=== PATIENT | female | born 1950 | race Two or more races ===

== ENCOUNTER 2024-08-07 08:03 | Outpatient (CLI) | payer OTHER | END 2024-08-07 08:12 | disposition home or self-care (01) | LOC: NUCLEAR 08:03 | PROVIDERS: ATTEND Family Medicine | DX: E21.3 Hyperparathyroidism, unspecified (principal) | CPT/HCPCS: 78070; A9500 ==

== ENCOUNTER 2025-07-22 07:25 | Outpatient (CLI) | payer OTHER | END 2025-07-22 07:26 | disposition home or self-care (01) | LOC: NUCLEAR 07:25 | PROVIDERS: ATTEND Family Medicine | DX: E21.3 Hyperparathyroidism, unspecified (principal) | CPT/HCPCS: 78071; A9500 ==